=== PATIENT | male | born 1955 | race Caucasian/White ===

== ENCOUNTER → 2020-07-08 14:59 | Outpatient (CLI) | payer MEDICARE, SELFPAY ==
--- NOTE | ~2020-07-08 | XR_ITS ---
EXAMINATION: XR shoulder LT min 2V DATE: 07/08/2020 15:12 INDICATION: Left shoulder pain. TECHNIQUE: 4 views of left shoulder were obtained. COMPARISON: None. FINDINGS: Bone alignment is normal. No fracture. There is mild osteoarthritis of glenohumeral joint a nd acromioclavicular joint. IMPRESSION: 1. Mild polyarticular osteoarthritis. Reviewed, dictated and finalized at location A. 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
== END ==
PROVIDERS: PCP Physician Assistant; Visit Provider Physician Assistant
DX: M25.512 Pain in left shoulder (principal); M19.012 Primary osteoarthritis, left shoulder
CPT/HCPCS: 73030

== ENCOUNTER → 2020-09-25 10:17 | Outpatient (CLI) | payer MEDICARE, SELFPAY ==
--- NOTE | ~2020-09-25 | MR_ITS ---
EXAMINATION: MR shoulder LT wo con DATE: 09/25/2020 11:24 INDICATION: Left shoulder pain and limited range of motion TECHNIQUE: Magnetic resonance imaging (MRI) of the left shoulder was performed without intravenous co ntrast. Sequences included axial PD-weighted FS FSE, coronal oblique PD-weighted FS FSE, coronal obli que T2-weighted FS FSE, sagittal PD-weighted FS FSE, and sagittal T1-weighted SE. COMPARISON: None. FINDINGS: Coracoacromial arch: The acromion undersurface is curved in morphology (type II). The coracoacromial ligament is normal. M ild acromioclavicular osteoarthritis. Rotator cuff: Mild tendinopathy and small mild intrasubstance tear along the footplate of the conjoined portion of the supraspinatus and infraspinatus tendons. The tear measures approximately 8 mm anteroposteriorly a nd involves up to one third of the tendon thickness. Subscapularis and teres minor tendons are normal . Normal rotator cuff muscle bulk and signal. Biceps tendon, glenoid labrum and glenohumeral cartilage: Long head of the biceps tendon is normal. Small tear at the base of the 11:00 position of the posteri or superior glenoid labrum. Degeneration at the inferior glenoid labrum which appears diminutive and has been partially replaced by small marginal osteophytes extend along the posterior and inferior rim of the glenoid. There is nonuniform partial thickness cartilage loss most prominent along the inferi or glenoid and inferomedial aspect of the humeral head. Additional small marginal ossified swelling t he inferomedial aspect of the humeral head. Fluid: Physiologic amount of fluid in the glenohumeral joint and biceps tendon sheath. No loose osteochondra l bodies. Small amount of fluid in the subacromial/subdeltoid bursa consistent with mild bursitis. Bones: Normal marrow signal with no edema, fracture or abnormal marrow replacing process. IMPRESSION: 1. Mild tendinopathy and small mild partial-thickness intrasubstance tear along the footplate of the conjoined portion of the supraspinatus and infraspinatus tendons. 2. Mild glenohumeral osteoarthritis with small tear at the posterior superior labrum and likely chron ic degeneration along the inferior labrum. 3. Mild subacromial/subdeltoid bursitis. Reviewed, dictated and finalized at location A. IMPRESSION: 1. Mild tendinopathy and small mild partial-thickness intrasubstance tear along the footplate of the conjoined portion of the supraspinatus and infraspinatus tendons. 2. Mild glenohumeral osteoarthritis with small tear at the posterior superior l abrum and likely chronic degeneration along the inferior labrum. 3. Mild subacromial/subdeltoid bursitis.
== END ==
PROVIDERS: PCP Physician Assistant; Visit Provider Physician Assistant
DX: M25.512 Pain in left shoulder (principal); M75.102 Unspecified rotator cuff tear or rupture of left shoulder, not specified as traumatic; M19.012 Primary osteoarthritis, left shoulder; S43.432A Superior glenoid labrum lesion of left shoulder, initial encounter; M75.52 Bursitis of left shoulder
CPT/HCPCS: 73221

== ENCOUNTER → 2021-01-26 15:10 | Outpatient (CLI) | payer MEDICARE, SELFPAY ==
--- NOTE | ~2021-01-26 | XR_ITS ---
XR_CERV2-3V_CR DATE: 01/26/2021 16:25 INDICATION: Neck pain TECHNIQUE: Open-mouth and standing AP and lateral views COMPARISON: None FINDINGS: C1 and C2 are normally aligned and the odontoid process is intact. No fracture or dislocation or lock ed facet. No prevertebral soft tissue swelling. Moderate degenerative disc disease at C5-6. Uncovertebral joint spurring at C5-6. IMPRESSION: Moderate degenerative disc disease and uncovertebral joint spurring at C5-6 Reviewed, dictated and finalized at Location A. Reviewed, dictated and finalized at location A.
== END ==
PROVIDERS: PCP Physician Assistant; Visit Provider Physician Assistant
DX: M50.322 Other cervical disc degeneration at C5-C6 level (principal)
CPT/HCPCS: 72040

== ENCOUNTER 2021-03-16 11:14 | Outpatient (CLI) | payer OTHER, MEDICARE, SELFPAY ==
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
== END 2021-03-16 11:15 | disposition home or self-care (01) ==
LOC: ANHIMG 11:22
PROVIDERS: PCP Physician Assistant; Visit Provider Physician Assistant
DX: R10.9 Unspecified abdominal pain (principal); M85.89 Other specified disorders of bone density and structure, multiple sites; M41.86 Other forms of scoliosis, lumbar region; M41.84 Other forms of scoliosis, thoracic region; M16.0 Bilateral primary osteoarthritis of hip; K76.0 Fatty (change of) liver, not elsewhere classified
CPT/HCPCS: 71046; 71110; 71120; 76700

== ENCOUNTER 2021-03-22 18:35 | Emergency (ER) | payer MEDICARE, SELFPAY ==
--- NOTE | ~2021-03-22 | XR_ITS ---
EXAMINATION: XR abdomen/kub 1V INDICATION: Constipation TECHNIQUE: Supine views of the abdomen were obtained on 2 radiographs. COMPARISON: None FINDINGS: There is a moderate volume of colonic stool. No dilated loops of bowel are evident. The vis ualized lung bases are clear. There is moderate lumbar spondylosis. Mild osteoarthritis is noted in t he hips. IMPRESSION: 1. Moderate volume of colonic stool. Reviewed, dictated and finalized at location A.
--- NOTE | ~2021-03-22 | CT_ITS ---
EXAMINATION: CT abdomen pelvis w con INDICATION: Constipation TECHNIQUE: Computed tomographic images of the abdomen and pelvis were obtained after the administrati on of 100 cc of Omnipaque 350 intravenous contrast. The dose-length product (DLP) was 826.19 mGy-cm. Automated exposure control and iterative reconstruction technique were employed. COMPARISON: None available FINDINGS: Minimal dependent atelectasis is present in the lung bases. The heart size is normal. There is a 5 mm cyst of the right hepatic lobe. There is a 1.5 cm hypoattenuating lesion in the medial asp ect of the left hepatic lobe. Punctate calcifications in an otherwise normal spleen likely represent healed granulomatous disease. The pancreas, gallbladder, and adrenal glands are normal. Hypoattenuati ng lesions of the kidneys measuring up to 8 mm on the right are consistent with cysts. No pathologica lly enlarged abdominal or pelvic lymph nodes are identified. There is calcified atherosclerosis of th e aorta and many of the other arteries. There is no free intraperitoneal gas or evidence of bowel obs truction. The appendix is normal. A moderate volume of colonic stool is present. There is moderate lexis mbar spondylosis. IMPRESSION: 1. Constipation. 2. Hypoattenuating lesion of the left hepatic lobe which may be benign or malignant. Follow-up by MRI without and with contrast is recommended. Reviewed, dictated and finalized at location A. IMPRESSION: 1. Constipation. 2. Hypoattenuating lesion of the left hepatic lobe which may be benign or malig nant. Follow-up by MRI without and with contrast is recommended.
[2021-03-22 18:45] VITALS: BP 132/75; PULSE 100; RESP 14; TEMP 36.2; O2SAT 100
[2021-03-22 20:35] VITALS: BP 156/97; PULSE 90; RESP 18; O2SAT 98
[2021-03-22 20:40] VITALS: BP 156/97; O2SAT 98
[2021-03-22 20:41] VITALS: O2SAT 98
[2021-03-22 20:45] VITALS: O2SAT 98
[2021-03-22 20:46] VITALS: BP 146/87; O2SAT 97
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
[2021-03-22 21:51] LABS: Basophils Percent Auto 0.3 % (0.2-1.2); Eosinophils Absolute Auto 0.1 K/mm3 (0-0.3); Eosinophils Percent Auto 0.8 % (0-4.4); Hemoglobin 15.5 g/dL (14.0-18.0); Immature Granulocyte Absolute 0.02 K/mm3 (0.00-0.031); Immature Granulocyte Percent A 0.3 % (0-0.5); Lymphocytes Absolute Auto 0.74 K/mm3 (0.9-3.2); Lymphocytes Percent Auto 11.9 % (18.3-44.2); Mean Corpuscular HGB Conc 35.2 g/dl (32-36); Mean Corpuscular Hemoglobin 30.6 pg (26-34); Mean Corpuscular Volume 86.8 fl (80-100); Mean Platelet Volume 9.2 fl (7.4-10.4); Monocytes Absolute Auto 0.8 K/mm3 (0.1-0.6); Monocytes Percent Auto 12.3 % (2.6-8.5); Neutrophils Absolute Auto 4.6 K/mm3 (1.3-6.7); Neutrophils Percent Auto 74.4 % (45.5-73.1); Platelet Count Result 276 k/mm3 (150-375); Red Blood Count 5.07 M/mm3 (4.6-6.20); Red Cell Distribution Width 11.7 % (11.5-14.5); White Blood Count 6.2 K/mm3 (4.5-10.0)
[2021-03-22 22:05] LABS: Alanine Aminotransferase 30 U/L (4-50); Albumin Level 5.3 g/dL (3.5-5.1); Alkaline Phosphatase 79 U/L (38-126); Anion Gap 12 mmol/L (8-16); Aspartate Amino Transferase 42 U/L (17-59); Bilirubin,Total 0.6 mg/dL (0.2-1.3); Blood Urea Nitrogen 46 mg/dL (9-20); Calcium 10.2 mg/dL (8.4-10.2); Carbon Dioxide 30 mmol/L (22-30); Chloride 93 mmol/L (98-107); Estimated CRCL calculation 44 ml/min; Estimated Glomerular Filt Rate 47; Glucose 192 mg/dL (65-110); Lipase 226 U/L (23-300); Potassium 4.6 mmol/L (3.4-5.0); Sodium 135 mmol/L (137-145)
[2021-03-23 00:05] VITALS: BP 140/86; PULSE 74; RESP 16; O2SAT 99
[2021-03-23] MEDS: METHYLNALTREXONE 12 MG/0.6 ML VIAL SUB-Q (01:18)
[2021-03-23 03:24] VITALS: BP 142/74; PULSE 78; RESP 12; O2SAT 99
== END 2021-03-23 03:25 | disposition home or self-care (01) ==
PROVIDERS: Emergency Provider Emergency Medicine; PCP Physician Assistant
DX: K59.00 Constipation, unspecified (principal); K76.9 Liver disease, unspecified
CPT/HCPCS: 36415; 74018; 74177; 80053; 83690; 85025; 96372; 99284; J2212; Q9967

== ENCOUNTER 2021-04-02 10:44 | Outpatient (CLI) | payer OTHER, MEDICARE, SELFPAY ==
--- NOTE | ~2021-04-02 | MR_ITS ---
EXAMINATION: MR abdomen wo/w con INDICATION: Indeterminate liver lesion on CT TECHNIQUE: Coronal SSFSE ARC, WATER:coronal LAVA-FLEX, Coronal 2D FIESTA FatSat, Axial SSFSE BH ARC, Axial 3D DualEcho BH, Axial SSFSE-IR, Axial DWI b=500, Axial 2D FIESTA FatSat, pre and dynamic postco ntrast Axial LAVA ARC, postcontrast Coronal In and Opposed phase LAVA FLEX COMPARISON: CT, 03/22/2021 CONTRAST: Multihance, 13 cc FINDINGS: There is a 13 mm area of the liver adjacent to the ligamentum teres which demonstrates loss of signal on fat-suppressed sequences. An 8 mm cyst is present in the right hepatic lobe. The spleen , pancreas, gallbladder, and adrenal glands are normal. There are no pathologically enlarged abdomina l lymph nodes. No dilated loops of bowel are evident. There is increased T2 signal intensity with ass ociated enhancement in the L5 vertebral body. IMPRESSION: 1. Findings consistent with focal fatty infiltration of the liver corresponding to the finding in que stion on recent CT. 2. Subacute L5 compression fracture. Reviewed, dictated and finalized at location A. IMPRESSION: 1. Findings consistent with focal fatty infiltration of the liver corresponding to the finding in question on recent CT. 2. Subacute L5 compression fracture.
[2021-04-02 11:16] LABS: Estimated Glomerular Filt Rate 60
== END 2021-04-02 10:45 | disposition home or self-care (01) ==
PROVIDERS: PCP Physician Assistant; Visit Provider Physician Assistant
DX: K76.9 Liver disease, unspecified (principal); M48.56XA Collapsed vertebra, not elsewhere classified, lumbar region, initial encounter for fracture
CPT/HCPCS: 74183; A9577

== ENCOUNTER → 2021-04-15 09:45 | Outpatient (CLI) | payer MEDICARE, SELFPAY ==
--- NOTE | ~2021-04-15 | XR_ITS ---
XR knee LT min 4V 04/15/2021 10:02 Indication: Left knee pain Procedure: 4 views left knee Comparison: No prior studies for comparison. Findings: No fracture, subluxation or dislocation. There is anatomic alignment. No significant joint space narrowing. No joint effusion. No foreign bodies. Impression: 1: No significant bone or joint abnormality. Reviewed, dictated and finalized at location A. [employer]OR [employer] Impression: 1: No significant bone or joint abnormality.
== END ==
PROVIDERS: PCP Physician Assistant; Visit Provider Physician Assistant
DX: M25.562 Pain in left knee (principal)
CPT/HCPCS: 73564

== ENCOUNTER 2021-06-16 00:18 | Day surgery (SDC) | payer MEDICARE, SELFPAY ==
[2021-05-31 13:32] VITALS: BMI 23.7
--- NOTE | 2021-06-15 13:49 | PM.HPGS ---
History of Present Illness History of Present Illness Consent: Risks, benefits, and alternatives have been discussed and questions answered. Patient agrees to proceed with procedure. Chief complaint: change in bowel habits Narrative: Robbin Saini is a 66 year old male referred for colon cancer screening. Review of Systems Review of Systems: All systems reviewed & are unremarkable except as noted in HPI and below PMFSH Past Medical History Medical History Patient denies significant medical history Family History Family History Other Family history of congestive heart failure Family history of lung cancer Social History Social History Smoking packs per day: 1 Smoking cigarettes per day: 20.0 Years smoked: 20 Smoking pack-years: 20.00 Smoking status: Former smoker Tobacco type: smokeless tobacco Smokeless tobacco user: other Second hand tobacco smoke exposure: No Alcohol intake: current Drinks per week: 7 Substance use: never Substance use type: does not use Living arrangements: alone Spiritual care concerns: No Meds Home Medications and Allergies Home Medications Medication Instructions Recorded Confirmed Type fenofibrate 48 mg BYMOUTH DAILY 05/31/21 05/31/21 History glimepiride 4 mg PO DAILY 05/31/21 05/31/21 History lisinopril-hydrochlorothiazide 1 tablet PO BID 05/31/21 05/31/21 History metformin 1,000 mg PO BID 05/31/21 05/31/21 History Allergies Allergy/AdvReac Type Severity Reaction Status Date / Time No Known Allergies Allergy Verified 06/16/21 08:52 Exam Resp: Auscultation: clear to auscultation bilaterally Cardio: Rate: regular rate Rhythm: regular rhythm GI: GI Palp: Yes Soft to palpation and No Tenderness to palpation present (GI) Assessment and Plan Assessment and plan (1) Change in bowel habits: Code(s): R19.4 - Change in bowel habit Status: Acute Assessment and Plan: Colonoscopy with possible biopsy or polypectomy or cautery or injection of substances.
[2021-06-16 08:54] VITALS: BP 163/85; PULSE 90; RESP 18; TEMP 36.1; O2SAT 100
[2021-06-16] MEDS: LACTATED RINGERS 1,000 ML 150 ML IV CONT (09:20)
[2021-06-16 09:22] LABS: Glucose Point of Care 157 mg/dl (65-105)
--- NOTE | 2021-06-16 09:51 | P.PNAN_ITS ---
Anes - Initial Pre Proc Eval Procedure: Operation Date: 06/16/21 10:00 Proposed Procedures p Colonoscopy - Felton Odom MD Date/Time: 06/16/21 09:51 Surgeon: Felton Odom MD Pre Op Diagnosis: change in bowel habits Patient Data Age: 66 Gender: M Height: 1.78 m Weight: 77.9 kg Last Vital Signs Temp 97 F L 06/16/21 08:54 Pulse 90 06/16/21 08:54 Resp 18 06/16/21 08:54 BP 163/85 H 06/16/21 08:54 Pulse Ox 100 06/16/21 08:54 Allergies Allergy/AdvReac Type Severity Reaction Status Date / Time No Known Allergies Allergy Verified 06/16/21 08:52 Home Medications Medication Instructions Recorded Confirmed Type fenofibrate 48 mg BYMOUTH DAILY 05/31/21 05/31/21 History glimepiride 4 mg PO DAILY 05/31/21 05/31/21 History lisinopril-hydrochlorothiazide 1 tablet PO BID 05/31/21 05/31/21 History metformin 1,000 mg PO BID 05/31/21 05/31/21 History Laboratory Tests 06/16/21 09:19 POC Capillary Glucose 157 mg/dl H mg/dl (65-105) Patient hx anesthesia problems: none Family hx anesthesia problems: none Results Review: All pre-operative results and documents have been reviewed as part of the pre-operative evaluation. [facility] Past Medical History Medical History (Updated 06/15/21 @ 13:50 by Felton Odom MD) Patient denies significant medical history Family History Family History (System 04/15/21 @ 15:27 by Muna Parks) Other Family history of congestive heart failure Family history of lung cancer Social History Social History (System 04/15/21 @ 15:27 by Muna Parks) Smoking packs per day: 1 Smoking cigarettes per day: 20.0 Years smoked: 20 Smoking pack-years: 20.00 Smoking status: Former smoker Tobacco type: smokeless tobacco Smokeless tobacco user: other Second hand tobacco smoke exposure: No Alcohol intake: current Drinks per week: 7 Substance use: never Substance use type: does not use Living arrangements: alone Spiritual care concerns: No Anes - Eval Final PreProcedure Day of Procedure 06/16/21 09:51 Patient weight: normal Heart: regular rate and rhythm Lungs: clear to auscultation Airway: Mallampati scale class II Neurological: alert and oriented Last oral intake: >/= 8 hours ASA classification: III Emergent: no Anesthetic plan: proceed Anesthesia type and monitoring: general GIVS and standard monitoring Results Review: All pre-operative results and documents have been reviewed as part of the pre-operative evaluation. Informed Consent: The patient's anesthetic plan and its attendant risks and benefits were discussed with the patient/family/POA. Questions were solicited and answers provided to the satisfaction of the patient/family/POA.
[2021-06-16] MEDS: SIMETHICONE ORAL SUSPENSION 20 MG/0.3 ML 30 ML BOTTLE 0.6 ML IRRIGATION (10:16)
[2021-06-16 10:25] VITALS: BP 85/49; PULSE 82; RESP 13; O2SAT 98
[2021-06-16 10:33] VITALS: BP 99/62; PULSE 78; RESP 20; O2SAT 100
[2021-06-16 10:43] VITALS: BP 105/69; PULSE 78; RESP 18; O2SAT 100
== END 2021-06-16 11:00 | disposition home or self-care (01) ==
PROVIDERS: PCP Physician Assistant; Visit Provider Internal Medicine Gastroenterology
PROC: 0DJD8ZZ Inspection of Lower Intestinal Tract, Via Natural or Artificial Opening Endoscopic (ICD-10-PCS; CPT 45378; principal; 2021-06-16 10:00)
DX: Z12.11 Encounter for screening for malignant neoplasm of colon (principal); K57.30 Diverticulosis of large intestine without perforation or abscess without bleeding; R19.4 Change in bowel habit; Z79.84 Long term (current) use of oral hypoglycemic drugs; Z87.891 Personal history of nicotine dependence
CPT/HCPCS: G0121; 82948; J2704; J7120

== ENCOUNTER 2022-07-02 08:58 | Emergency (ER) | payer MEDICARE, SELFPAY ==
--- NOTE | ~2022-07-02 | CT_ITS ---
EXAMINATION: CT soft tissue neck w con DATE: 07/02/2022 10:52 INDICATION: Left lower dental infection. Jaw swelling. TECHNIQUE: Computed tomography (CT) of the neck was performed with 75 mL Omnipaque-350 intravenous co ntrast. The dose-length product was 528.61 mGy-cm. Automated exposure control and iterative reconstru ction technique were employed. COMPARISON: None FINDINGS: Mild asymmetric soft tissue swelling of the left maxillary region. No discrete walled off f luid collection to suggest abscess. Visualized intracranial contents are unremarkable. Paranasal sinu ses and mastoids are pneumatized. Mucosal and parapharyngeal spaces are symmetric. No significant cer vical lymphadenopathy. Lung apices are unremarkable. No significant vascular abnormality. Thyroid gla nd is unremarkable. IMPRESSION: 1. Mild asymmetric left maxillary soft tissue swelling without discrete abscess. Reviewed, dictated and finalized at location A. [employer] IMPRESSION: 1. Mild asymmetric left maxillary soft tissue swelling without discrete abscess .
[2022-07-02 08:59] VITALS: BP 112/72; PULSE 92; RESP 20; TEMP 36.7; O2SAT 100
--- NOTE | 2022-07-02 09:33 | ED.DENTAL ---
HPI - Dental/Oral General Chief complaint: Dental/Oral Stated complaint: L LOWER JAW INFECTION Time Seen by Provider: 07/02/22 09:04 Source: patient Mode of arrival: ambulatory Limitations: no limitations History of Present Illness HPI Narrative: Patient is a 67 y/o male who presents to the ED with c/o L lower jaw swelling. Patient reports he has a cracked left lower tooth, tooth #20. He developed swelling in his left lower jaw and outer gumline surrounding the tooth last week. He was seen by his local area dentist on and started on Keflex 500 mg 4 times daily. He has been taking this as directed. He states he initially noticed some improvement of the swelling, but today, the swelling and pain in his left lower jaw seemed to be worse which prompted his presentation. Patient plans to have the tooth extracted with his dentist, but she wanted the infection treated first. Patient denies any trismus, difficulty swallowing, difficulty breathing, fevers, nausea, vomiting. Related Data Home Medications Medication Instructions Recorded Confirmed fenofibrate 48 mg BYMOUTH DAILY 05/31/21 05/31/21 glimepiride 4 mg tablet 4 mg PO DAILY 05/31/21 05/31/21 lisinopril 10 1 tablet PO BID 05/31/21 05/31/21 mg-hydrochlorothiazide 12.5 mg tablet metformin 1,000 mg tablet 1,000 mg PO BID 05/31/21 05/31/21 Allergies Allergy/AdvReac Type Severity Reaction Status Date / Time No Known Allergies Allergy Verified 06/16/21 08:52 Review of Systems Review of Systems: CONSTITUTIONAL: Denies fever, chills, or sweats. ENT: See HPI. CARDIOVASCULAR: Denies chest pain. RESPIRATORY: Denies cough or dyspnea. GASTROINTESTINAL: Denies abdominal pain, nausea, vomiting. All systems reviewed & are unremarkable except as noted in HPI and below [facility] Past Medical History Medical History (Updated 07/02/22 @ 11:07 by Jeanne Hurley PA-C) Diabetes mellitus HTN (hypertension) Surgical History Surgical History (Updated 07/02/22 @ 10:32 by Jeanne Hurley PA-C) No pertinent past surgical history Family History Family History Other Family history of congestive heart failure Family history of lung cancer Social History Social History Smoking packs per day: 1 Smoking cigarettes per day: 20.0 Years smoked: 20 Smoking pack-years: 20.00 Smoking status: Former smoker Tobacco type: smokeless tobacco Smokeless tobacco user: other Second hand tobacco smoke exposure: No Alcohol intake: current Drinks per week: 7 Substance use: never Substance use type: does not use Living arrangements: alone Spiritual care concerns: No Exam Narrative: GENERAL: Well appearing, well-nourished, non-toxic, in no acute distress. HEAD: Normocephalic, atraumatic. ENT: No trismus. Scattered dental caries and dental decay. Cracked tooth #20, surrounding gumline erythematous and swollen, particularly on outer gumline, area of induration over left lower mandible, tender to palpation. NECK: Supple. No adenopathy, no masses. RESPIRATORY: Airway patent, respirations nonlabored. Clear to auscultation bilaterally, no rales, rhonchi, wheezing. CARDIOVASCULAR: Regular rate and rhythm without murmurs, rubs, or gallops. Radial pulses 2+ and equal bilaterally. MUSCULOSKELETAL: Moves all extremities. Strength/ROM intact without gross deformities. SKIN: Warm, dry, normal color. No rashes. NEURO: A&O X3. Speech clear. Cranial nerves II-XII grossly intact. Steady gait. No ataxic movements. PSYCHIATRIC: Appropriate mood and affect. Normal interaction. Course Vital Signs Vital signs: Vital Signs Temperature 98.1 F 07/02/22 08:59 Pulse Rate 92 07/02/22 08:59 Respiratory Rate 20 07/02/22 08:59 Blood Pressure 112/72 07/02/22 08:59 Pulse Oximetry 100 07/02/22 08:59 Oxygen Delivery Room Air 07/02/22 0
[2022-07-02 10:06] LABS: Basophils Percent Auto 0.3 % (0.2-1.2); Eosinophils Absolute Auto 0.2 K/mm3 (0-0.3); Eosinophils Percent Auto 2.6 % (0-4.4); Hematocrit 45.6 % (42.0-52.0); Hemoglobin 15.4 g/dL (14.0-18.0); Immature Granulocyte Absolute 0.02 K/mm3 (0.00-0.031); Immature Granulocyte Percent A 0.3 % (0-0.5); Lymphocytes Absolute Auto 0.91 K/mm3 (0.9-3.2); Lymphocytes Percent Auto 13.7 % (18.3-44.2); Mean Corpuscular HGB Conc 33.8 g/dl (32-36); Mean Corpuscular Hemoglobin 29.8 pg (26-34); Mean Corpuscular Volume 88.2 fl (80-100); Mean Platelet Volume 9.1 fl (7.4-10.4); Neutrophils Absolute Auto 4.5 K/mm3 (1.3-6.7); Neutrophils Percent Auto 68.1 % (45.5-73.1); Platelet Count Result 244 k/mm3 (150-375); Red Blood Count 5.17 M/mm3 (4.6-6.20); Red Cell Distribution Width 11.8 % (11.5-14.5); White Blood Count 6.7 K/mm3 (4.5-10.0)
[2022-07-02 10:19] LABS: Anion Gap 8 mmol/L (8-16); Blood Urea Nitrogen 31 mg/dL (9-20); Calcium 9.2 mg/dL (8.4-10.2); Carbon Dioxide 30 mmol/L (22-30); Chloride 95 mmol/L (98-107); Estimated CRCL calculation 43 ml/min; Estimated Glomerular Filt Rate 46; Glucose 202 mg/dL (65-110); Potassium 4.9 mmol/L (3.4-5.0); Sodium 133 mmol/L (137-145)
[2022-07-02 11:17] VITALS: BP 146/82; PULSE 86; RESP 14; TEMP 36.6; O2SAT 100
== END 2022-07-02 11:29 | disposition home or self-care (01) ==
PROVIDERS: Emergency Provider Physician Assistant; PCP Physician Assistant
DX: K04.7 Periapical abscess without sinus (principal); K03.81 Cracked tooth; E11.9 Type 2 diabetes mellitus without complications; I10 Essential (primary) hypertension; Z87.891 Personal history of nicotine dependence; Z79.84 Long term (current) use of oral hypoglycemic drugs
CPT/HCPCS: 36415; 70491; 80048; 85025; 99284; Q9967

== ENCOUNTER 2025-03-20 11:36 | Outpatient (CLI) | payer MEDICARE, SELFPAY ==
--- NOTE | ~2025-03-20 | US_ITS ---
EXAMINATION: US renal BI, 03/20/2025 11:41 CDT HISTORY: Chronic kidney disease, unspecified Comparison: None Technique: Ness-scale and color Doppler images were obtained. Findings: KIDNEYS: Renal cortices intact, no solid masses, cysts or calculi, no hydronephrosis. Right Kidney: Right kidney 10.7 x 5.8 x 4.9 cm. Left Kidney: Left kidney 9.8 x 5.1 x 3.5 cm. Bladder: The bladder is unremarkable. . Impression: No acute abnormality. Reviewed, dictated and finalized at location P. Impression: No acute abnormality.
== END 2025-03-20 11:37 | disposition home or self-care (01) ==
LOC: MICIMG 11:38
PROVIDERS: PCP Physician Assistant; Visit Provider Physician Assistant
DX: R79.89 Other specified abnormal findings of blood chemistry (principal); N18.9 Chronic kidney disease, unspecified
CPT/HCPCS: 76770

== ENCOUNTER 2025-03-26 11:23 | Outpatient (CLI) | payer MEDICARE, SELFPAY ==
--- NOTE | ~2025-03-26 | XR_ITS ---
XR lumbar spine 2-3V Indication: LT SIDED LBP WORSEN PAST 2 WKS Comparison: None Findings: Mild loss of vertebral height throughout, no fracture or subluxation Moderate loss of disc height throughout. Soft tissues unremarkable Impression: No acute abnormality. Reviewed, dictated and finalized at location P. Impression: No acute abnormality.
--- NOTE | ~2025-03-26 | XR_ITS ---
EXAMINATION: XR abdomen/kub 1V, 03/26/2025 11:42 CDT HISTORY: LLQ pain x2 WKS COMPARISON: No comparisons available. Technique: 3 view. Findings: Moderate fecal content, no dilated bowel loops No free air. No abnormal calcifications No acute osseous abnormality. Impression: 1. No acute abnormality. Reviewed, dictated and finalized at location P. Impression: 1. No acute abnormality.
== END 2025-03-26 11:24 | disposition home or self-care (01) ==
PROVIDERS: PCP Physician Assistant; Visit Provider Physician Assistant
DX: M54.59 Other low back pain (principal)
CPT/HCPCS: 72100; 74018